=== PATIENT | male | born 1990 | race Caucasian/White ===

== ENCOUNTER 2019-11-06 17:33 | Emergency (ER) | payer MEDICAID ==
[~2019-11-06] VITALS: Ht 165.1 cm; Wt 100.9 kg
[2019-11-06 17:39] VITALS: BP 132/77; TEMP 97.9
[2019-11-06 18:22] LABS: BASO # 0.1 (0.0-0.2); BASO % 0.6 % (0.0-2.0); EOS # 0.1 (0.0-0.7); EOS % 0.7 % (0-4.0); GRAN % 67.5 % (42.2-75.2); HEMATOCRIT 39.4 % (42.0-52.0); LYMPH # 1.8 (1.2-3.4); LYMPH % 20.5 % (20.0-51.0); MEAN CELL VOLUME 93 fl (80.0-100.0); MEAN CORPUSCULAR HEMOGLOBIN 33 pg (27.0-31.0); MEAN CORPUSCULAR HGB CONC 36 g/dl (33.0-37.0); MEAN PLATELET VOLUME 9.7 fl (7.4-10.4); MONO # 0.9 (0.1-0.6); MONO % 9.9 % (1.7-9.3); PLATELET COUNT 207 K/mm3 (130-400); RED BLOOD COUNT 4.24 M/mm3 (4.20-5.60); REDCELL DISTRIBUTION WIDTH-CV 18.8 % (11.5-14.5)
[2019-11-06 18:40] LABS: ALBUMIN 3.8 gm/dL (3.5-5.0); CALCIUM 8.5 mg/dL (8.4-10.2); CREATININE, serum 0.9 (0.66-1.25)
[2019-11-06 20:27] LABS: INR 1.2 (0.8-3.0); PROTHROMBIN TIME 12.9 SECONDS (9.7-12.8)
[2019-11-06 21:04] VITALS: PULSE 104
[2019-11-07] MEDS ORDERED: ZOFRAN ODT4 MG PO (10:16)
[2019-11-07] MEDS ORDERED: VALIUM 5MG T5 MG/TAB PO (10:16)
[2019-11-07] MEDS ORDERED: ELIQUIS 5MG PO (10:16)
== END 2019-11-06 21:22 | disposition home or self-care (01) ==
LOC: COL.ER 17:33
PROVIDERS: Nurse Practitioner
DX: M79.662 Pain in left lower leg (principal); M79.89 Other specified soft tissue disorders; F17.210 Nicotine dependence, cigarettes, uncomplicated
CPT/HCPCS: J1650; J7030

== ENCOUNTER 2019-11-07 09:27 | Emergency (ER) | payer MEDICAID ==
[~2019-11-07] VITALS: Ht 165.1 cm; Wt 100.9 kg
[2019-11-07 09:46] VITALS: TEMP 98.1
[2019-11-07] MEDS ORDERED: ZOFRAN ODT4 MG PO (10:16)
[2019-11-07] MEDS ORDERED: ELIQUIS 5MG PO (10:16)
[2019-11-07] MEDS ORDERED: VALIUM 5MG T5 MG/TAB PO (10:16)
[2019-11-07 10:39] VITALS: BP 127/88; PULSE 97
== END 2019-11-07 10:39 | disposition home or self-care (01) ==
LOC: COL.ER 09:27
DX: I82.4Z2 Acute embolism and thrombosis of unspecified deep veins of left distal lower extremity (principal); F10.20 Alcohol dependence, uncomplicated; F17.210 Nicotine dependence, cigarettes, uncomplicated; K70.10 Alcoholic hepatitis without ascites; Z79.01 Long term (current) use of anticoagulants

== ENCOUNTER → 2019-11-07 | Outpatient (CLI) | payer MEDICAID ==
[~2019-11-07] MED LIST: ELIQUIS 5MG PO; VALIUM 5MG T5 MG/TAB PO; ZOFRAN ODT4 MG PO
== END ==
LOC: COL.VAS 08:47
DX: I82.452 Acute embolism and thrombosis of left peroneal vein (principal); I82.432 Acute embolism and thrombosis of left popliteal vein

== ENCOUNTER → 2020-02-04 | Outpatient (CLI) | payer MEDICAID | LOC: COL.VAS | DX: I82.402 Acute embolism and thrombosis of unspecified deep veins of left lower extremity (principal) ==